=== PATIENT | female | born 1950 | race Caucasian/White ===

== ENCOUNTER 2016-05-09 12:40 | Day surgery (SDC) | payer MEDICARE, OTHER ==
[~2016-05-09] VITALS: Ht 157.5 cm; Wt 83.9 kg
[~2016-05-09 12:40] MED LIST: ALPH600C3 PO; ASPI-973 PO; CHOL10008 PO; CRAN200C2 PO; CYAN500 PO; ECHI400C17 PO; GARL200T PO; MAGN250T29 PO; MULT-1018 PO; NAPR220C11 PO; Sodium Chloride LOK Flush 10 mL Syringe IVFLUSH SCH; VESICARE PO; [UNRECOGNIZED DRUG - CODE] MC; fentaNYL-PF 50 mCg/mL 2 mL Inj IVPUSH PRN
[2016-05-09 13:02] VITALS: BP 116/62; PULSE 78; RESP 16; O2SAT 95
[2016-05-09] MEDS: 0.9% Sodium Chloride 1,000 ML ONE ×2 (13:51→14:53)
[2016-05-09 15:03] VITALS: BP 112/69; PULSE 62; RESP 14; O2SAT 99
[2016-05-09 15:19] VITALS: BP 115/61; PULSE 61; RESP 14; O2SAT 100
[2016-05-09 15:26] VITALS: BP 117/60; PULSE 69; RESP 14; O2SAT 99
--- NOTE | 2016-05-09 16:38 | ENDO ---
[address] [address] ENDOSCOPY PROCEDURE PATIENT: YANET TRAMMELL : 1950 MR#: [id number] ADMIT: 05/09/2016 JOB ID: [id number] PREPROCEDURE DIAGNOSIS: History of colon polyps. POSTPROCEDURE DIAGNOSIS: History of colon polyps. PROCEDURE PERFORMED: Colonoscopy to the cecum. SURGEON: Charity Tam MD. SURGICAL ATTENDANT: Pedro Hare MD. INSTRUMENT: [employer] PCF H 180 AL. MEDICATIONS: 1. Versed 9 mg. 2. Fentanyl 175 mcg. 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 Repeat colonoscopy one year later was normal. Additional colonoscopy was recommended at a 10-year interval, which is 2017. She recently had a positive Hemoccult blood test and, for that reason, as well colonoscopy was recommended. DESCRIPTION OF PROCEDURE: The patient was brought to the procedure suite and placed in left lateral decubitus position. Moderate anesthesia was induced. A digital rectal examination was performed and was normal. The endoscope was advanced into the rectum, through the sigmoid, and to the hepatic flexure. She had an extremely long and tortuous colon. Dr. Hare's assistance was requested for the final 10 cm to achieve a complete colonoscopy to the ileocecal valve. The coalescence of the tenia, appendiceal orifice, and ileocecal valve were all visualized. The prep was good. Eight minutes were spent in backing out. Careful inspection of the mucosa revealed scattered diverticula throughout the colon. There were no mucosal abnormalities, masses, strictures, or polyps. The patient tolerated the procedure well. FINDINGS: Scattered diverticula, otherwise normal examination to the cecum. COMPLICATIONS: None. SPECIMENS: None. ESTIMATED BLOOD LOSS: None.
== END 2016-05-09 23:59 | disposition home or self-care (01) ==
LOC: END 12:40
PROVIDERS: ATTEND Surgery
DX: K57.32 Diverticulitis of large intestine without perforation or abscess without bleeding (principal); R19.5 Other fecal abnormalities
CPT/HCPCS: 45378; 99153; G0500; J2250; J7030